=== PATIENT | male | born 1975 | race American Indian/Alaskan Native ===

== ENCOUNTER 2017-06-21 10:58 | Emergency (ER) | payer MEDICARE ==
[2017-06-21 11:47] LABS: Eosinophils % (Auto) 6.3 % (0.0-4.3)
[2017-06-21 11:49] LABS: Basophils % (Auto) 0.7 % (0.0-1.8)
[2017-06-21 11:50] LABS: Hematocrit 42.6 % (35.5-45.6); Hemoglobin 13.4 gm/dl (11.8-15.2); Red Blood Count 5.58 M/mm3 (3.65-5.03); White Blood Count 7.7 K/mm3 (4.5-11.0)
[2017-06-21 11:51] LABS: Mean Corpuscular HGB Conc 31 % (32-34); Mean Corpuscular Hemoglobin 24 pg (28-32); Mean Corpuscular Volume 76 fl (84-94); Platelet Count 273 K/mm3 (140-440); Red Cell Distribution Width 14.5 % (13.2-15.2)
[2017-06-21 11:52] LABS: INR 3.07 (0.87-1.13)
[2017-06-21 11:53] LABS: Partial Thromboplastin Time 36.4 Sec. (24.2-36.6)
[2017-06-21 11:58] LABS: Anion Gap 19 mmol/L; BUN/Creatinine Ratio 16.66; Blood Urea Nitrogen 35 mg/dL (9-20); Carbon Dioxide 27 mmol/L (22-30); Chloride 99.1 mmol/L (98-107); Glucose 87 mg/dL (75-100); Potassium 3.9 mmol/L (3.6-5.0); Sodium 141 mmol/L (137-145)
--- NOTE | 2017-06-22 04:01 | Emergency Department Report ---
ED Chest Pain HPI - General Chief Complaint: Chest Pain Stated Complaint: CHEST PAIN Time Seen by Provider: 06/22/17 03:30 Source: patient Mode of arrival: Ambulatory Limitations: No Limitations - History of Present Illness Initial Comments: 42 years old male with past medical history of high blood pressure, presented with chest pain, central ,sharp in nature ,and comes and goes, started yesterday , denied any shortness of breath, no fever,no cough. He stated that he has been pushing and lifting heavy stuff for the last 2 days, no other complaints MD Complaint: chest pain -: Last night Onset: during rest Pain Location: substernal Severity scale (0 -10): 0 Quality: sharp re: denies: nausea, vomting, diaphoresis - Related Data Home Medications Medication Instructions Recorded Confirmed Last Taken Metoprolol [Lopressor] 100 mg PO BID 06/22/17 06/22/17 Unknown Previous Rx's Medication Instructions Recorded Last Taken Type Naproxen [Naprosyn] 500 mg PO BID #14 tablet 06/22/17 Unknown Rx Allergies Allergy/AdvReac Type Severity Reaction Status Date / Time No Known Allergies Allergy Unverified 06/21/17 11:19 Heart Score - HEART Score History: Slightly suspicious EKG: Normal Age: < 45 Risk factors: 1-2 risk factors Troponin: < normal limit HEART Score: 1 - Critical Actions Critical Actions: 0-3 pts:0.9-1.7%risk of adverse cardiac event.Candidate for discharge ED Review of Systems ROS: Stated complaint: CHEST PAIN Other details as noted in HPI Comment: All other systems reviewed and negative Constitutional: denies: chills, fever ENT: denies: throat pain Respiratory: denies: cough, shortness of breath, SOB with exertion, SOB at rest Cardiovascular: chest pain. denies: palpitations, dyspnea on exertion Gastrointestinal: denies: abdominal pain, nausea, vomiting, diarrhea Skin: denies: rash, lesions Neurological: denies: headache, weakness, numbness ED Past Medical Hx - Past Medical History Hx Hypertension: Yes Hx CVA: Yes (right-sided weakness,speak impairment,confusion) Hx Psychiatric Treatment: Yes (bipolar) Additional medical history: elevated cholesterol,[place],CAD - Surgical History Additional Surgical History: stent replacement-failed attempt-on coumadin - Social History Smoking Status: Current Some Day Smoker Substance Use Type: None - Medications Home Medications: Home Medications Medication Instructions Recorded Confirmed Last Taken Type Metoprolol [Lopressor] 100 mg PO BID 06/22/17 06/22/17 Unknown History Naproxen [Naprosyn] 500 mg PO BID #14 tablet 06/22/17 Unknown Rx ED Physical Exam - General Limitations: No Limitations General appearance: alert, in no apparent distress - Head Head exam: Present: atraumatic, normocephalic - Neck Neck exam: Present: normal inspection - Respiratory Respiratory exam: Present: normal lung sounds bilaterally, chest wall tenderness. Absent: respiratory distress, wheezes, rales, rhonchi, stridor, accessory muscle use, decreased breath sounds, prolonged expiratory - Cardiovascular Cardiovascular Exam: Present: regular rate, normal rhythm, normal heart sounds - GI/Abdominal GI/Abdominal exam: Present: soft. Absent: tenderness, guarding, rebound - Extremities Exam Extremities exam: Present: normal inspection - Neurological Exam Neurological exam: Present: alert, oriented X3, CN II-XII intact ED Course Vital Signs 06/21/17 06/22/17 06/22/17 11:11 02:39 02:40 Temperature 99 F 97.7 F Pulse Rate 75 69 Respiratory 20 14 14 Rate Blood Pressure 143/103 Blood Pressure 171/112 [Left] O2 Sat by Pulse 97 96 96 Oximetry - Reevaluation(s) Reevaluation #1: 06/22/17 04:03 Patient stated that his chest pain is completely resolved. His troponin came back negative. ED Medical Decision Making - Lab Data Result diagrams: 06/21/17 11:20 06/21/17 11:20 Critical care attestation.: If time is entered above; I have spent that time in minutes in the direct care of this critically ill patient, excluding procedure time. ED Disposition Clinical Impression: Chest pain, Costochondritis, acute Disposition: DC-01 TO HOME OR SELFCARE Is pt being admited?: No Does the pt Need Aspirin: No (atypical chest pain) Condition: Stable Instructions: Chest Pain (ED), Costochondritis (ED) Referrals: PRIMARY CARE,MD [Primary Care Provider] - 3-5 Days
[2017-06-22 04:20] VITALS: BP 150/96
== END 2017-06-22 04:19 | disposition home or self-care (01) ==
LOC: ED 10:58
DX: M94.0 Chondrocostal junction syndrome [Tietze] (principal); I10 Essential (primary) hypertension; F17.210 Nicotine dependence, cigarettes, uncomplicated; Z86.73 Personal history of transient ischemic attack (TIA), and cerebral infarction without residual deficits
CPT/HCPCS: 36415; 80048; 84484; 85025; 85610; 85730; 93005; 93010; 99284

== ENCOUNTER 2017-07-15 09:45 | Emergency (ER) | payer MEDICARE ==
[2017-07-15 10:41] LABS: Basophils % (Auto) 0.7 % (0.0-1.8); Hematocrit 39.7 % (35.5-45.6); Hemoglobin 12.7 gm/dl (11.8-15.2); Mean Corpuscular HGB Conc 32 % (32-34); Mean Corpuscular Volume 76 fl (84-94); Platelet Count 254 K/mm3 (140-440); Red Cell Distribution Width 14.6 % (13.2-15.2); White Blood Count 7.2 K/mm3 (4.5-11.0)
[2017-07-15 10:42] LABS: Mean Corpuscular Hemoglobin 24 pg (28-32)
[2017-07-15 10:51] LABS: Anion Gap 16 mmol/L; Blood Urea Nitrogen 39 mg/dL (9-20); Calcium 9.3 mg/dL (8.4-10.2); Carbon Dioxide 28 mmol/L (22-30); Chloride 102.7 mmol/L (98-107); Glucose 123 mg/dL (75-100); Potassium 3.5 mmol/L (3.6-5.0); Sodium 143 mmol/L (137-145)
[2017-07-15 14:50] VITALS: BP 141/97
[2017-07-15] MEDS ORDERED: DECADRON IV ONE (16:49)
[2017-07-15] MEDS ORDERED: MOTRIN PO ONE (16:51)
[2017-07-15] MEDS ORDERED: CLEOCIN PO ONE (16:52)
[2017-07-15] MEDS ORDERED: ZITHROMAX 500 MG in NACL 0.9% 250ML 250 ML IV ONE (17:13)
--- NOTE | 2017-07-15 17:37 | Emergency Department Report ---
HPI - General Chief Complaint: Headache Time Seen by Provider: 07/15/17 16:22 - HPI HPI: The patient is a 42-year-old male presents for evaluation of headache and throat pain. The patient reports the pain for the past 2 days, burning in scratching in quality, 5/10 in severity, exacerbated with swallowing. He also reports a secondary complaint of mild aching generalized headache for the past one day, constant since onset, consistent with previous eye drainage. The patient denies trauma to the head, dyspnea, neck stiffness, dysphagia, stridor, drooling, difficulty tolerating secretions, dysphonia, hoarseness of voice, abdominal pain, paresthesias, motor deficits, or other focal neurological deficits. ED Past Medical Hx - Past Medical History Hx Hypertension: Yes Hx CVA: Yes (right-sided weakness,speak impairment,confusion) Hx Psychiatric Treatment: Yes (bipolar) Additional medical history: elevated cholesterol,[place],CAD - Surgical History Additional Surgical History: stent replacement-failed attempt-on coumadin - Social History Smoking Status: Current Every Day Smoker - Medications Home Medications: Home Medications Medication Instructions Recorded Confirmed Last Taken Type Metoprolol [Lopressor] 100 mg PO BID 06/22/17 06/22/17 Unknown History Naproxen [Naprosyn] 500 mg PO BID #14 tablet 06/22/17 Unknown Rx Clindamycin [Clindamycin CAP] 300 mg PO TID #20 cap 07/15/17 Unknown Rx Ibuprofen [Motrin] 800 mg PO Q8HR PRN #15 tablet 07/15/17 Unknown Rx ED Review of Systems ROS: Stated complaint: HEADACHE , TONGUE SWOLLEN Other details as noted in HPI Constitutional: denies: fever ENT: reports throat pain Respiratory: denies: cough, shortness of breath Cardiovascular: denies: chest pain Endocrine: denies unexplained weight loss or gain Gastrointestinal: denies: abdominal pain, nausea Genitourinary: denies: dysuria Musculoskeletal: denies: leg swelling Skin: denies: rash Neurological: reports headache Hematological/Lymphatic: denies: easy bleeding or easy bruising Psych: denies sadness or hopelessness Physical Exam - Physical Exam Vital Signs: Vital Signs 07/15/17 07/15/17 07/15/17 09:58 14:49 14:50 Temperature 97.8 F 98.8 F Pulse Rate 79 78 Respiratory 16 20 18 Rate Blood Pressure 139/101 Blood Pressure 139/101 141/97 [Left] O2 Sat by Pulse 95 95 95 Oximetry 07/15/17 17:20 Temperature Pulse Rate Respiratory 18 Rate Blood Pressure Blood Pressure [Left] O2 Sat by Pulse Oximetry Physical Exam: General: well-nourished, well-developed, no acute distress Head: Normocephalic, atraumatic Eyes: normal sclera ENT: Mucous membranes are pink and moist, mildly erythematous uvula with mild swelling, mild posterior oropharyngeal erythema present as well, no pooling of secretions in the posterior oropharynx, no stridor, no tonsillar exudates, no uvula or soft palate deviation, no bulging of the lateral oropharyngeal vitale Neck: trachea midline, neck supple, No neck stiffness, mild bilateral anterior cervical adenopathy is present Respiratory: Breath sounds equal bilaterally, no wheezing, rales, or rhonchi Cardio: S1 and S2 present, no murmurs, rubs, gallops, capillary refill is brisk Abdomen: Normoactive bowel sounds, soft abdomen, no rigidity, no guarding or rebound tenderness Musc: No pitting edema Skin: No rash Neuro: alert oriented x4, normal cognition, speech normal, PERRL, EOM intact, no facial drooping, no uvula or tongue deviation on protrusion, no deficit with rotation of neck or shoulder shrug, no obvious gross motor deficit in the upper or lower extremities with flexion or extension at the shoulder, elbow, wrist, hip, knee, or ankle bilaterally, no obvious gross sensation deficit to crude touch or 2 pt discrimination, 2+ symmetric reflexes on DTR testing, no dysmetria , dysdiadochokinesia, no coordination deficit with [id number] or heel-to- richard testing,romberg negative, patient able to to ambulate without abnormal gait Psych: Normal affect ED Course Vital Signs 07/15/17 07/15/17 07/15/17 09:58 14:49 14:50 Temperature 97.8 F 98.8 F Pulse Rate 79 78 Respiratory 16 20 18 Rate Blood Pressure 139/101 Blood Pressure 139/101 141/97 [Left] O2 Sat by Pulse 95 95 95 Oximetry 07/15/17 17:20 Temperature Pulse Rate Respiratory 18 Rate Blood Pressure Blood Pressure [Left] O2 Sat by Pulse Oximetry ED Medical Decision Making - Lab Data Result diagrams: 07/15/17 10:13 07/15/17 10:13 - Medical Decision Making The patient was seen and examined by myself. The patient is placed on a bus driver/monitor and continuous pulse ox. On initial evaluation, the patient was found to be in no distress. Evaluation orders are placed. The patient given by mouth Motrin for his pain, or Decadron, and a tablet of clindamycin. Lab results revealed normal WBC with elevated creatinine of 2.5. Medical records are reviewed and revealed that the patient has history of elevated creatinine of >2 on evaluation 1 month ago. The patient was reevaluated and reported that their symptoms were markedly improved. The patient is offered admission for further evaluation of kidney injury and he declines. The patient is stable for discharge with outpatient follow-up. The patient is given follow-up and return instructions. The patient expressed understanding and agreed with the plan. The patient is discharged in stable condition. Critical care attestation.: If time is entered above; I have spent that time in minutes in the direct care of this critically ill patient, excluding procedure time. ED Disposition Clinical Impression: Uvulitis, CKD (chronic kidney disease), stage I Acute nonintractable headache Qualifiers: Headache type: tension-type Qualified Code(s): G44.209 - Tension-type headache , unspecified, not intractable Pharyngitis, acute Qualifiers: Pharyngitis/tonsillitis etiology: unspecified etiology Qualified Code(s): J02.9 - Acute pharyngitis, unspecified Disposition: DC-01 TO HOME OR SELFCARE Is pt being admited?: No Does the pt Need Aspirin: No Condition: Stable Instructions: Sinusitis (ED), Acute Headache (ED) Prescriptions: Clindamycin [Clindamycin CAP] 300 mg PO TID #20 cap Ibuprofen [Motrin] 800 mg PO Q8HR PRN #15 tablet PRN Reason: Pain Referrals: PRIMARY CARE, [Primary Care Provider] - 3-5 Days SERAFIN GORE MD [Staff Physician] - 3-5 Days Time of Disposition: 17:33
== END 2017-07-15 17:57 | disposition home or self-care (01) ==
LOC: ED 09:45
DX: N18.1 Chronic kidney disease, stage 1 (principal); I12.9 Hypertensive chronic kidney disease with stage 1 through stage 4 chronic kidney disease, or unspecified chronic kidney disease; G44.209 Tension-type headache, unspecified, not intractable; J02.9 Acute pharyngitis, unspecified; K12.2 Cellulitis and abscess of mouth; F17.200 Nicotine dependence, unspecified, uncomplicated; I63.9 Cerebral infarction, unspecified; I25.10 Atherosclerotic heart disease of native coronary artery without angina pectoris
CPT/HCPCS: 36415; 80048; 84484; 85025; 87116; 87430; 96374; 99284; J1100

== ENCOUNTER 2017-07-22 15:34 | Emergency (ER) | payer MEDICARE ==
[2017-07-22 21:40] LABS: Basophils % (Auto) 0.6 % (0.0-1.8); Eosinophils % (Auto) 6.1 % (0.0-4.3); Hematocrit 39.6 % (35.5-45.6); Hemoglobin 12.7 gm/dl (11.8-15.2); Mean Corpuscular HGB Conc 32 % (32-34); Mean Corpuscular Volume 76 fl (84-94); Platelet Count 287 K/mm3 (140-440); Red Blood Count 5.19 M/mm3 (3.65-5.03); Red Cell Distribution Width 14.9 % (13.2-15.2); White Blood Count 9.9 K/mm3 (4.5-11.0)
[2017-07-22 21:42] LABS: Mean Corpuscular Hemoglobin 25 pg (28-32)
[2017-07-22 21:45] LABS: Albumin 4.2 g/dL (3.9-5); Albumin/Globulin Ratio 1.5 %; BUN/Creatinine Ratio 15.83; Bilirubin,Total 0.2 mg/dL (0.1-1.2); Calcium 8.9 mg/dL (8.4-10.2); Chloride 95.9 mmol/L (98-107); Potassium 3.4 mmol/L (3.6-5.0)
[2017-07-22 21:48] LABS: INR 3.64 (0.87-1.13)
[2017-07-22] MEDS ORDERED: APRESOLINE IV ONE (23:30)
--- NOTE | 2017-07-22 23:46 | Emergency Department Report ---
HPI - General Chief Complaint: Medical Clearance Time Seen by Provider: 07/22/17 23:21 - HPI HPI: This is a 42 year-old male presents to the emergency department from [place] with the complaint of some abnormal bruising that showed up on his left arm. He denies any trauma or injections to that area. He has a history of non-Hodgkin's lymphoma. He has a history of some type of coronary artery disease that was supposed to have stent placement but they were unable to do so and therefore he was placed on warfarin, which he has been taking compliantly. He denies any chest pain, short of breath, nausea, vomiting or fever. He has a primary care doctor. He has a history of a CVA with some residual right-sided weakness and speech impairment. He has a past psychiatric history of bipolar disorder. He also presents with elevated blood pressure and says he has not taken his nighttime metoprolol. ED Past Medical Hx - Past Medical History Previous Medical History?: Yes Hx Hypertension: Yes Hx CVA: Yes (right-sided weakness,speak impairment,confusion) Hx Psychiatric Treatment: Yes (bipolar) Additional medical history: elevated cholesterol,[place],CAD - Surgical History Past Surgical History?: Yes Additional Surgical History: stent replacement-failed attempt-on coumadin - Social History Smoking Status: Current Every Day Smoker Substance Use Type: Prescribed - Medications Home Medications: Home Medications Medication Instructions Recorded Confirmed Last Taken Type Metoprolol [Lopressor] 100 mg PO BID 06/22/17 06/22/17 Unknown History Naproxen [Naprosyn] 500 mg PO BID #14 tablet 06/22/17 Unknown Rx Clindamycin [Clindamycin CAP] 300 mg PO TID #20 cap 07/15/17 Unknown Rx Ibuprofen [Motrin] 800 mg PO Q8HR PRN #15 tablet 07/15/17 Unknown Rx ED Review of Systems ROS: Stated complaint: ALLERGIC REACTION TO MEDICATION Other details as noted in HPI Comment: All other systems reviewed and negative Constitutional: denies: chills, fever Eyes: denies: eye pain, eye discharge, vision change ENT: denies: ear pain, throat pain Respiratory: denies: cough, shortness of breath, wheezing Cardiovascular: denies: chest pain, palpitations Gastrointestinal: denies: abdominal pain, nausea, diarrhea Genitourinary: denies: urgency, dysuria Musculoskeletal: denies: back pain, joint swelling, arthralgia Skin: denies: rash, lesions Neurological: denies: headache, weakness, paresthesias Hematological/Lymphatic: easy bruising. denies: easy bleeding Physical Exam - Physical Exam Vital Signs: Vital Signs 07/22/17 07/22/17 07/22/17 16:38 21:04 23:10 Temperature 98 F 98 F 98.1 F Pulse Rate 68 74 73 Respiratory 20 16 16 Rate Blood Pressure 155/98 Blood Pressure 183/123 183/123 [Left] O2 Sat by Pulse 99 97 99 Oximetry 07/22/17 23:12 Temperature Pulse Rate 72 Respiratory Rate Blood Pressure Blood Pressure 194/125 [Left] O2 Sat by Pulse Oximetry Physical Exam: GENERAL: The patient is well-developed well-nourished. HENT: Normocephalic. Atraumatic. Patient has moist mucous membranes. EYES: Extraocular motions are intact. Pupils equal reactive to light bilaterally. NECK: Supple. Trachea is midline. CHEST/LUNGS: Clear to auscultation. There is no respiratory distress noted. HEART/CARDIOVASCULAR: Regular. There is no tachycardia. There is no gallop rub or murmur. ABDOMEN: Abdomen is soft, nontender. Patient has normal bowel sounds. There is no abdominal distention. SKIN: Skin is warm and dry. There is a large area of ecchymosis to the left upper arm. NEURO: The patient is awake, alert, and oriented. The patient is cooperative. The patient has no acute focal neurologic deficits. MUSCULOSKELETAL: There is no tenderness or deformity. There is no limitation range of motion. There is no evidence of acute injury. ED Course Vital Signs 07/22/17 07/22/17 07/22/17 16:38 21:04 23:10 Temperature 98 F 98 F 98.1 F Pulse Rate 68 74 73 Respiratory 20 16 16 Rate Blood Pressure 155/98 Blood Pressure 183/123 183/123 [Left] O2 Sat by Pulse 99 97 99 Oximetry 07/22/17 23:12 Temperature Pulse Rate 72 Respiratory Rate Blood Pressure Blood Pressure 194/125 [Left] O2 Sat by Pulse Oximetry ED Medical Decision Making - Lab Data Result diagrams: 07/22/17 21:08 07/22/17 21:08 - Medical Decision Making 42-year-old male presents to the emergency department from [place] for an evaluation as he woke up with a large bruise to the left arm and is on Coumadin. His INR is slightly supratherapeutic at 3.6. There is no areas of spontaneous bleeding and the rest of his labs are unremarkable. He will hold his next Coumadin or warfarin pill so he can get back down towards a therapeutic level but then will continue again on Thursday. He also presented with elevated blood pressure and was given a dose of hydralazine. His blood pressure was still elevated but was much more reasonable and the patient says that he still is due to take his metoprolol 100 mg when he returns back to [place]. Since he is asymptomatic, he will be discharged back to [place] to take his medication. We discussed dietary lifestyle changes he can make to also help with his blood pressure which includes smoking cessation. He'll return to the ER with any worsening of symptoms or any acute distress. - Differential Diagnosis supratherapeutic INR, hypertensive urgency, tobacco abuse Critical Care Time: No Critical care attestation.: If time is entered above; I have spent that time in minutes in the direct care of this critically ill patient, excluding procedure time. ED Disposition Clinical Impression: Supratherapeutic INR Hypertension Qualifiers: Hypertension type: essential hypertension Qualified Code(s): I10 - Essential ( primary) hypertension Disposition: - TO HOME OR SELFCARE Is pt being admited?: No Condition: Stable Instructions: Hypertension (ED), Elevated INR (ED) Additional Instructions: Make sure to go home and take your blood pressure medication. Try to stay away from foods that are high in salt and caffeinated products to help with your blood pressure. Quit smoking. Keep a blood pressure log. Your INR today was about 3.6 which is elevated. I would skip your dose of warfarin/Coumadin for tomorrow and then continue as normal on Thursday. Make sure you get to a primary care physician for follow-up regarding her blood pressure and for another INR check. Return to the emergency department with any heavy bleeding, chest pain or shortness of breath, headache, or any acute distress. Referrals: HELGA ARDON DO [Primary Care Provider] - 3-5 Days Time of Disposition: 01:00
[2017-07-23 01:23] VITALS: BP 166/112
== END 2017-07-23 01:15 | disposition home or self-care (01) ==
LOC: ED 15:34
DX: I10 Essential (primary) hypertension (principal); R79.1 Abnormal coagulation profile; Z86.73 Personal history of transient ischemic attack (TIA), and cerebral infarction without residual deficits; F31.9 Bipolar disorder, unspecified; F17.200 Nicotine dependence, unspecified, uncomplicated
CPT/HCPCS: 36415; 80053; 85025; 85610; 96374; 99283; J0360

== ENCOUNTER 2017-11-05 21:54 | Emergency (ER) | payer MEDICARE ==
--- NOTE | 2017-11-06 01:04 | Cat Scan Report ---
FINAL REPORT EXAM: CT HEAD/BRAIN WO CON HISTORY: trauma,on coumadin COMPARISON: CT of the head from August 2017. TECHNIQUE: Contiguous axial images were obtained. FINDINGS: Remote large left MCA distribution infarct involving the left frontal, parietal and temporal lobes and left subinsular region. Mild ex vacuo dilatation of the left lateral ventricle. At the medial margin of the left frontal lobe, there are 2 hyperdense foci measuring 5 x 5 and 7 x 6 millimeters each. These are new from prior study concerning for small hemorrhagic contusive injuries given the patient's history. No extra-axial hemorrhage. Basal cisterns are patent. Calvarium is intact. Visualized paranasal sinuses and mastoid air cells are clear. Visualized orbits are grossly unremarkable. IMPRESSION: Two small hemorrhagic contusive injuries involving the medial left frontal lobe. Each are subcentimeter in size. No extra-axial hemorrhage. Calvarium is intact. Stable remote large left MCA distribution infarct.
[2017-11-06] MEDS ORDERED: NORMODYNE IV ONE ×2 (02:28→03:57)
[2017-11-06 02:38] LABS: Hematocrit 38.9 % (35.5-45.6); Hemoglobin 12.3 gm/dl (11.8-15.2); Mean Corpuscular HGB Conc 32 % (32-34); Mean Corpuscular Volume 77 fl (84-94); Platelet Count 278 K/mm3 (140-440); Red Blood Count 5.08 M/mm3 (3.65-5.03); Red Cell Distribution Width 15.7 % (13.2-15.2)
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
[2017-11-06 02:42] LABS: Mean Corpuscular Hemoglobin 24 pg (28-32)
[2017-11-06 02:50] LABS: INR 0.95 (0.87-1.13)
[2017-11-06 02:51] LABS: Partial Thromboplastin Time 26.2 Sec. (24.2-36.6)
[2017-11-06 02:55] LABS: Calcium 8.8 mg/dL (8.4-10.2)
[2017-11-06] MEDS ORDERED: MORPHINE IV ONE (03:57)
[2017-11-06] MEDS ORDERED: ZOFRAN IV ONE (03:58)
[2017-11-06 04:54] LABS: Amphetamine Screen,Urine PRESUMPTIVE NEGATIVE; Benzodiazepines Screen,Urine PRESUMPTIVE NEGATIVE; Cocaine Screen,Urine PRESUMPTIVE NEGATIVE; Methadone Screen,Urine PRESUMPTIVE NEGATIVE; Opiate Screen,Urine PRESUMPTIVE NEGATIVE
[2017-11-06 05:22] LABS: Cannabinoid Screen,Urine PRESUMPTIVE POSITIVE
[2017-11-06 06:16] VITALS: BP 179/114
== END 2017-11-06 06:20 | disposition other institution (70) ==
LOC: ED 21:54
DX: I16.1 Hypertensive emergency (principal); I10 Essential (primary) hypertension; S06.339A Contusion and laceration of cerebrum, unspecified, with loss of consciousness of unspecified duration, initial encounter; F31.9 Bipolar disorder, unspecified; E78.00 Pure hypercholesterolemia, unspecified; I25.2 Old myocardial infarction; I25.10 Atherosclerotic heart disease of native coronary artery without angina pectoris; Z86.73 Personal history of transient ischemic attack (TIA), and cerebral infarction without residual deficits; Z95.818 Presence of other cardiac implants and grafts; Z79.899 Other long term (current) drug therapy; Z79.01 Long term (current) use of anticoagulants; Y04.0XXA Assault by unarmed brawl or fight, initial encounter; Y93.89 Activity, other specified; Y99.8 Other external cause status; Y92.89 Other specified places as the place of occurrence of the external cause
CPT/HCPCS: 36415; 70450; 80048; 80307; 84484; 85027; 85610; 85730; 93005; 93010; 96374; 96375; 96376; 99285; G0480; J2270; J2405; 80320

== ENCOUNTER 2018-05-19 17:31 | Emergency (ER) | payer MEDICARE ==
[2018-05-19 19:43] LABS: Basophils # (Auto) 0.1 K/mm3 (0.0-0.1); Basophils % (Auto) 1.5 % (0.0-1.8); Eosinophils # (Auto) 0.5 K/mm3 (0.0-0.4); Eosinophils % (Auto) 4.9 % (0.0-4.3); Hematocrit 37.2 % (35.5-45.6); Hemoglobin 11.5 gm/dl (11.8-15.2); Lymphocytes # (Auto) 1.8 K/mm3 (1.2-5.4); Lymphocytes % (Auto) 18.7 % (13.4-35.0); Mean Corpuscular HGB Conc 31 % (32-34); Mean Corpuscular Volume 77 fl (84-94); Monocytes # (Auto) 0.8 K/mm3 (0.0-0.8); Monocytes % (Auto) 8.5 % (0.0-7.3); Platelet Count 430 K/mm3 (140-440); Red Blood Count 4.82 M/mm3 (3.65-5.03); Red Cell Distribution Width 14.7 % (13.2-15.2)
[2018-05-19 19:47] LABS: Mean Corpuscular Hemoglobin 24 pg (28-32)
[2018-05-19 20:07] LABS: Calcium 8.9 mg/dL (8.4-10.2)
--- NOTE | 2018-05-19 20:31 | Emergency Department Report ---
ED General Adult HPI - General Chief complaint: Dyspnea/Respdistress Stated complaint: SOB Time Seen by Provider: 05/19/18 20:19 Source: patient Mode of arrival: Ambulatory Limitations: Other (the patient is a poor historian.) - History of Present Illness Initial comments: This is a 43-year-old male who is unknown to this provider previously. History is primarily obtained by speaking to his recent cardiac surgeon, Dr. Eliu Link As per the cardiothoracic surgeon, patient was recently admitted to the [facility] from May 05 to May 14 for chronic type a aortic dissection, pulmonary emboli, and pulmonary infarcts. He reports that the dissection is chronic, patient had an IVC filter placed, and was taken off Coumadin. The patient presented to the ER with a complaint of chest pain and shortness of breath. The patient indicates the chest pain as central, but cannot describe the quality of nature of the pain, exacerbating or relieving factors or radiation. Patient is quite disorganized, and is a very poor historian. He also has a history of stroke, residual right-sided weakness, and chronic renal insufficiency. He is not accompanied currently by any caregiver or any adult. In the emergency room, the patient was very confused, and was found to have an elevated troponin, as well as chronic renal insufficiency. A noncontrast CT scan of the brain demonstrated no obvious bleeding, but demonstrated a chronic left-sided infarct with encephalomalacia, and an x-ray of the chest suggested infiltrates, and a noncontrast CT scan of the chest suggested known pulmonary infarcts. This hospital does not have cardiothoracic surgery available for consultation. Given that the patient has a type A dissection, spiking troponin , he will require consultation by cardiothoracic surgery. The case was discussed with consult in cardiothoracic surgeon, Dr. Dr. Eliu Link, he accepted the patient as a transfer for continuity of care. There is no family currently available who can give informed consent for transfer, however given his chronic medical issues, complex presentation, elevated troponin, known type A dissection, and given that this hospital cannot provide definitive care for this patient, it is my medical opinion that he will be best served to be transferred back to the aforementioned hospital, [place]. Therefore, I have administrated we consented the patient for transfer. As per my discussion with consult in cardiothoracic surgery, pulmonary infiltrates are likely pulmonary infarcts, and does not require antibiotic therapy. -: unknown Location: chest Radiation: other (as per history of present illness) Quality: other (as per history of present illness) Consistency: other (as per history of present illness) Improves with: other (as per history of present illness) Associated Symptoms: chest pain, shortness of breath, other (as per history of present illness.) - Related Data Home Medications Medication Instructions Recorded Confirmed Last Taken Aspirin [Aspirin BABY CHEW TAB] 162 mg PO QDAY 09/15/17 09/15/17 Unknown Citalopram Hydrobromide 20 mg PO DAILY 09/15/17 09/15/17 09/14/17 [Citalopram HBr] Iron Polysaccharide Complex 150 mg PO DAILY 09/15/17 09/15/17 Unknown [Ferrex 150] Trazodone HCl 100 mg PO QHS 09/15/17 09/15/17 Unknown Warfarin [Coumadin] 7.5 mg PO QDAY 09/15/17 09/15/17 09/14/17 Previous Rx's Medication Instructions Recorded Last Taken Type AtorvaSTATin [Lipitor] 20 mg PO QHS #30 tablet 09/16/17 Unknown Rx Losartan Potassium [Cozaar] 50 mg PO DAILY #30 tablet 09/16/17 Unknown Rx Metoprolol [Lopressor TAB] 100 mg PO BID #60 tablet 09/16/17 Unknown Rx NIFEdipine [Nifedipine ER] 90 mg PO DAILY #30 tablet.er 09/16/17 Unknown Rx Allergies Allergy/AdvReac Type Severity Reaction Status Date / Time No Known Allergies Allergy Unverified 06/21/17 11:19 ED Review of Systems ROS: Stated complaint: SOB Other details as noted in HPI Comment: Unobtainable due to pts medical conditions ED Past Medical Hx - Past Medical History Previous Medical History?: Yes Hx Hypertension: Yes Hx CVA: Yes (right-sided weakness,speak impairment,confusion) Hx Congestive Heart Failure: No Hx Diabetes: No Hx Psychiatric Treatment: Yes (bipolar) Hx Asthma: No Hx COPD: No Additional medical history: elevated cholesterol,LA,CAD, aortic dissection, PE - Surgical History Past Surgical History?: Yes Additional Surgical History: stent replacement-failed attempt-on coumadin - Social History Smoking Status: Unknown if ever smoked Substance Use Type: None - Medications Home Medications: Home Medications Medication Instructions Recorded Confirmed Last Taken Type Aspirin [Aspirin BABY CHEW TAB] 162 mg PO QDAY 09/15/17 09/15/17 Unknown History Citalopram Hydrobromide 20 mg PO DAILY 09/15/17 09/15/17 09/14/17 History [Citalopram HBr] Iron Polysaccharide Complex 150 mg PO DAILY 09/15/17 09/15/17 Unknown History [Ferrex 150] Trazodone HCl 100 mg PO QHS 09/15/17 09/15/17 Unknown History Warfarin [Coumadin] 7.5 mg PO QDAY 09/15/17 09/15/17 09/14/17 History AtorvaSTATin [Lipitor] 20 mg PO QHS #30 tablet 09/16/17 Unknown Rx Losartan Potassium [Cozaar] 50 mg PO DAILY #30 tablet 09/16/17 Unknown Rx Metoprolol [Lopressor TAB] 100 mg PO BID #60 tablet 09/16/17 Unknown Rx NIFEdipine [Nifedipine ER] 90 mg PO DAILY #30 tablet.er 09/16/17 Unknown Rx ED Physical Exam - General Limitations: Other (patient is a poor historian and is disorganized) General appearance: alert, in no apparent distress - Head Head exam: Present: atraumatic, normocephalic - Eye Eye exam: Present: normal appearance, EOMI. Absent: nystagmus - ENT ENT exam: Present: normal exam, normal orophraynx, mucous membranes moist, normal external ear exam - Neck Neck exam: Present: normal inspection, full ROM - Respiratory Respiratory exam: Present: normal lung sounds bilaterally. Absent: respiratory distress - Cardiovascular Cardiovascular Exam: Present: regular rate, normal rhythm, normal heart sounds. Absent: bradycardia, tachycardia, irregular rhythm, systolic murmur, diastolic murmur, rubs, gallop - GI/Abdominal GI/Abdominal exam: Present: soft, normal bowel sounds. Absent: distended, tenderness, guarding, rebound, rigid, pulsatile mass - Rectal Rectal exam: Present: deferred - Extremities Exam Extremities exam: Present: normal inspection, full ROM, normal capillary refill , other (2+ pulses noted in the bilateral upper, lower extremities. Compartments soft. No long bony tenderness. The pelvis is stable.). Absent: pedal edema, joint swelling, calf tenderness - Back Exam Back exam: Present: normal inspection, full ROM. Absent: tenderness, CVA tenderness (R), paraspinal tenderness, vertebral tenderness - Neurological Exam Neurological exam: Present: alert, other (Extraocular movements intact. Tongue midline. No facial droop. Facial sensation intact to light touch in the V1, V2 , V3 distribution bilaterally. 5 and 5 strength in 4 extremities.. Sensation is intact to light touch in 4 extremities.). Absent: motor sensory deficit - Psychiatric Psychiatric exam: Present: flat affect - Skin Skin exam: Present: warm, dry, intact, normal color. Absent: rash ED Course Vital Signs 05/19/18 05/19/18 05/19/18 17:31 19:40 19:46 Temperature 98.8 F Pulse Rate 91 H 85 86 Respiratory 16 23 30 H Rate Blood Pressure 142/87 129/79 O2 Sat by Pulse 95 92 Oximetry 05/19/18 05/19/18 05/19/18 20:00 20:16 20:30 Temperature Pulse Rate 84 88 87 Respiratory 24 19 16 Rate Blood Pressure 129/79 131/74 131/74 O2 Sat by Pulse 91 87 95 Oximetry 05/19/18 05/19/18 22:18 22:30 Temperature Pulse Rate 86 86 Respiratory 21 24 Rate Blood Pressure 131/79 131/79 O2 Sat by Pulse 93 93 Oximetry ED Medical Decision Making - Lab Data Result diagrams: 05/19/18 19:15 05/19/18 19:15 Vital Signs 05/19/18 05/19/18 05/19/18 17:31 19:40 19:46 Temperature 98.8 F Pulse Rate 91 H 85 86 Respiratory 16 23 30 H Rate Blood Pressure 142/87 129/79 O2 Sat by Pulse 95 92 Oximetry 05/19/18 05/19/18 05/19/18 20:00 20:16 20:30 Temperature Pulse Rate 84 88 87 Respiratory 24 19 16 Rate Blood Pressure 129/79 131/74 131/74 O2 Sat by Pulse 91 87 95 Oximetry Lab Results 05/19/18 05/19/18 05/19/18 Range/Units 19:15 19:15 20:28 WBC 9.8 (4.5-11.0) K/mm3 RBC 4.82 (3.65-5.03) M/mm3 Hgb 11.5 L (11.8-15.2) gm/dl Hct 37.2 (35.5-45.6) % MCV 77 L (84-94) fl MCH 24 L (28-32) pg MCHC 31 L (32-34) % RDW 14.7 (13.2-15.2) % Plt Count 430 (140-440) K/mm3 Lymph % (Auto) 18.7 (13.4-35.0) % Brooks % (Auto) 8.5 H (0.0-7.3) % Eos % (Auto) 4.9 H (0.0-4.3) % Baso % (Auto) 1.5 (0.0-1.8) % Lymph # 1.8 (1.2-5.4) K/mm3 Brooks # 0.8 (0.0-0.8) K/mm3 Eos # 0.5 H (0.0-0.4) K/mm3 Baso # 0.1 (0.0-0.1) K/mm3 Seg Neutrophils % 66.4 (40.0-70.0) % Seg Neutrophils # 6.5 (1.8-7.7) K/mm3 PT (12.2-14.9) Sec. INR (0.87-1.13) APTT (24.2-36.6) Sec. Sodium 142 (137-145) mmol/L Potassium 4.0 (3.6-5.0) mmol/L Chloride 103.5 (98-107) mmol/L Carbon Dioxide 25 (22-30) mmol/L Anion Gap 18 mmol/L BUN 34 H (9-20) mg/dL Creatinine 2.8 H (0.8-1.5) mg/dL Estimated GFR 30 ml/min BUN/Creatinine Ratio 12 % Glucose 131 H (75-100) mg/dL Calcium 8.9 (8.4-10.2) mg/dL Magnesium (1.7-2.3) mg/dL Total Bilirubin (0.1-1.2) mg/dL Direct Bilirubin (0-0.2) mg/dL Indirect Bilirubin mg/dL AST (5-40) units/L ALT (7-56) units/L Alkaline Phosphatase (35-129) units/L Troponin T 0.083 H 0.117 H* D (0.00-0.029) ng/mL Total Protein (6.3-8.2) g/dL Albumin (3.9-5) g/dL Albumin/Globulin Ratio % Triglycerides 72 (2-149) mg/dL Cholesterol 109 (50-199) mg/dL LDL Cholesterol Direct 57 (50-130) mg/dL HDL Cholesterol 41 (40-59) mg/dL Cholesterol/HDL Ratio 2.65 % Salicylates (2.8-20.0) mg/dL Acetaminophen (10.0-30.0) ug/mL Plasma/Serum Alcohol (0-0.07) % 05/19/18 05/19/18 05/19/18 Range/Units 20:28 20:28 20:28 WBC (4.5-11.0) K/mm3 RBC (3.65-5.03) M/mm3 Hgb (11.8-15.2) gm/dl Hct (35.5-45.6) % MCV (84-94) fl MCH (28-32) pg MCHC (32-34) % RDW (13.2-15.2) % Plt Count (140-440) K/mm3 Lymph % (Auto) (13.4-35.0) % Brooks % (Auto) (0.0-7.3) % Eos % (Auto) (0.0-4.3) % Baso % (Auto) (0.0-1.8) % Lymph # (1.2-5.4) K/mm3 Brooks # (0.0-0.8) K/mm3 Eos # (0.0-0.4) K/mm3 Baso # (0.0-0.1) K/mm3 Seg Neutrophils % (40.0-70.0) % Seg Neutrophils # (1.8-7.7) K/mm3 PT 15.0 H (12.2-14.9) Sec. INR 1.12 (0.87-1.13) APTT 24.2 (24.2-36.6) Sec. Sodium (137-145) mmol/L Potassium (3.6-5.0) mmol/L Chloride (98-107) mmol/L Carbon Dioxide (22-30) mmol/L Anion Gap mmol/L BUN (9-20) mg/dL Creatinine (0.8-1.5) mg/dL Estimated GFR ml/min BUN/Creatinine Ratio % Glucose (75-100) mg/dL Calcium (8.4-10.2) mg/dL Magnesium 2.00 (1.7-2.3) mg/dL Total Bilirubin 0.30 (0.1-1.2) mg/dL Direct Bilirubin < 0.2 (0-0.2) mg/dL Indirect Bilirubin 0.1 mg/dL AST 29 (5-40) units/L ALT 46 (7-56) units/L Alkaline Phosphatase 139 H (35-129) units/L Troponin T (0.00-0.029) ng/mL Total Protein 6.2 L (6.3-8.2) g/dL Albumin 3.0 L (3.9-5) g/dL Albumin/Globulin Ratio 0.9 % Triglycerides (2-149) mg/dL Cholesterol (50-199) mg/dL LDL Cholesterol Direct (50-130) mg/dL HDL Cholesterol (40-59) mg/dL Cholesterol/HDL Ratio % Salicylates < 0.3 L (2.8-20.0) mg/dL Acetaminophen (10.0-30.0) ug/mL Plasma/Serum Alcohol (0-0.07) % 05/19/18 05/19/18 Range/Units 20:28 20:28 WBC (4.5-11.0) K/mm3 RBC (3.65-5.03) M/mm3 Hgb (11.8-15.2) gm/dl Hct (35.5-45.6) % MCV (84-94) fl MCH (28-32) pg MCHC (32-34) % RDW (13.2-15.2) % Plt Count (140-440) K/mm3 Lymph % (Auto) (13.4-35.0) % Brooks % (Auto) (0.0-7.3) % Eos % (Auto) (0.0-4.3) % Baso % (Auto) (0.0-1.8) % Lymph # (1.2-5.4) K/mm3 Brooks # (0.0-0.8) K/mm3 Eos # (0.0-0.4) K/mm3 Baso # (0.0-0.1) K/mm3 Seg Neutrophils % (40.0-70.0) % Seg Neutrophils # (1.8-7.7) K/mm3 PT (12.2-14.9) Sec. INR (0.87-1.13) APTT (24.2-36.6) Sec. Sodium (137-145) mmol/L Potassium (3.6-5.0) mmol/L Chloride (98-107) mmol/L Carbon Dioxide (22-30) mmol/L Anion Gap mmol/L BUN (9-20) mg/dL Creatinine (0.8-1.5) mg/dL Estimated GFR ml/min BUN/Creatinine Ratio % Glucose (75-100) mg/dL Calcium (8.4-10.2) mg/dL Magnesium (1.7-2.3) mg/dL Total Bilirubin (0.1-1.2) mg/dL Direct Bilirubin (0-0.2) mg/dL Indirect Bilirubin mg/dL AST (5-40) units/L ALT (7-56) units/L Alkaline Phosphatase (35-129) units/L Troponin T (0.00-0.029) ng/mL Total Protein (6.3-8.2) g/dL Albumin (3.9-5) g/dL Albumin/Globulin Ratio % Triglycerides (2-149) mg/dL Cholesterol (50-199) mg/dL LDL Cholesterol Direct (50-130) mg/dL HDL Cholesterol (40-59) mg/dL Cholesterol/HDL Ratio % Salicylates (2.8-20.0) mg/dL Acetaminophen < 5.0 L (10.0-30.0) ug/mL Plasma/Serum Alcohol < 0.01 (0-0.07) % - EKG Data -: EKG Interpreted by Me - EKG Data 05/19/18 22:21 Normal sinus, premature ventricular contractions, QTC prolonged, motion artifact , normal axis, not STEMI. - Radiology Data Radiology results: report reviewed, image reviewed interpreted by me: X-ray of the chest shows upper lobe and lower lobe infiltrates Noncontrast CT scan of the brain demonstrates chronic left-sided infarcts. No acute findings. Print Report Referring Physician: ELENA OWENS Patient Name: ELENA LEE Date of : 1975 Sex: Male Report Date: 2018-05-19 Report Status: [place] [id number] Cat Scan Report Signed Patient: ELENA LEE MR#: [id number] : 1975 Acct:[id number] Age/Sex: 43 / M ADM Date: 05/19/18 Loc: ED Attending Dr: Ordering Physician: ELENA OWENS MD Date of Service: 05/19/18 Procedure(s): CT chest wo con Accession Number(s): [id number] cc: ELENA OWENS MD FINAL REPORT EXAM: CT CHEST WO CON HISTORY: cp dyspnea TECHNIQUE: Spiral CT scanning of the chest. No IV contrast administered. Multiplanar reformations. PRIORS: None. FINDINGS: Chest: Examination limited due to lack of IV contrast administration. Lungs show mild, bullous emphysematous changes, with upper lobe predominance. Patchy and partially confluent opacities scattered in the bilateral upper and right middle lobes. More dense and partially mass-like consolidations in bilateral lower lobes, with some air bronchograms. Minimal bilateral pleural effusions. No apparent pneumothorax. Mild cardiomegaly. Fusiform aneurysmal dilatation of ascending thoracic aorta and aortic arch measuring approximately 5.7 cm and 4 cm in maximal cross-sectional diameter, respectively, and tapering distally. No apparent pseudoaneurysm or pneumomediastinum. No significant lymph node enlargement or axillary adenopathy. Surgical clips noted in right axillary region. Subcentimeter hypodensity in the right hepatic lobe may represent cyst, but is too small to adequately characterize. Ovoid hypodensity in the left kidney measures approximately 2.5 cm. Lobular appearance of spleen may be developmental or secondary to splenosis. IMPRESSION: 1. Patchy opacities or infiltrates in bilateral upper and right middle lobes and more dense consolidations in bilateral lower lobes, which may represent acute infectious or inflammatory process versus nonspecific postinflammatory change or pneumonitis of uncertain etiology or chronicity. Please note neoplastic or metastatic disease cannot be completely excluded. Clinical correlation and followup to resolution advised. 2. Cardiomegaly and fusiform aneurysmal dilatation of ascending thoracic aorta and aortic arch, as reported. 3. Left renal hypodensity possibly representing cyst, but nonspecific. Correlation with renal ultrasound may be confirmatory, as clinically indicated. Transcribed By: [facility] Dictated By: BHAVESH ALBA MD Electronically Authenticated By: BHAVESH ALBA MD Signed Date/Time: 05/19/18 2228 - Medical Decision Making Differential diagnosis, including but not limited to: Pulmonary embolus, acute coronary syndrome, aortic dissection, pulmonary infarct Assessment and plan: 43-year-old male with elevated troponin, known pulmonary embolus, known aortic dissection, poor historian, disorganized, not homicidal or suicidal, does not have decision-making capacity in my opinion, requires emergent an administrative transfer to facility that can provide definitive care. No family or guardian is currently available for informed consent. Critical care attestation.: If time is entered above; I have spent that time in minutes in the direct care of this critically ill patient, excluding procedure time. ED Disposition Clinical Impression: Chest pain, History of aortic dissection, CKD (chronic kidney disease) [facility] Is pt being admited?: No Does the pt Need Aspirin: No Condition: Good Instructions: Chest Pain (ED) Referrals: PRIMARY CARE, [Primary Care Provider] - 3-5 Days
[2018-05-19 20:41] LABS: Chol/HDL Ratio 2.65 %
[2018-05-19 20:58] LABS: INR 1.12 (0.87-1.13); Partial Thromboplastin Time 24.2 Sec. (24.2-36.6)
[2018-05-19 21:04] LABS: Alanine Aminotransferase 46 units/L (7-56)
[2018-05-19 21:15] LABS: Bilirubin,Direct < 0.2 mg/dL (0-0.2)
--- NOTE | 2018-05-19 21:57 | Cat Scan Report ---
FINAL REPORT EXAM: CT HEAD/BRAIN WO CON HISTORY: ams on coumadin TECHNIQUE: Noncontrast CT axial images of the brain. PRIORS: 05 November 2017. FINDINGS: No parenchymal mass, mass effect, hemorrhage, midline shift or hydrocephalus. No evidence of acute cortical infarct. No abnormal, extra-axial fluid or air collection. Diffuse, geographic foci of encephalomalacia again noted in the left frontal, temporal and parietal regions, with ex vacuo dilatation of left lateral ventricle probably related in left MCA territory infarct about the same. Much smaller focus of encephalomalacia in left cerebellum may also represent remote ischemic change, stable. Osseous calvarium grossly intact. IMPRESSION: 1. No acute intracranial findings.. 2. Chronic ischemic changes suspected.
--- NOTE | 2018-05-19 22:33 | Cat Scan Report ---
FINAL REPORT EXAM: CT CHEST WO CON HISTORY: cp dyspnea TECHNIQUE: Spiral CT scanning of the chest. No IV contrast administered. Multiplanar reformations. PRIORS: None. FINDINGS: Chest: Examination limited due to lack of IV contrast administration. Lungs show mild, bullous emphysematous changes, with upper lobe predominance. Patchy and partially confluent opacities scattered in the bilateral upper and right middle lobes. More dense and partially mass-like consolidations in bilateral lower lobes, with some air bronchograms. Minimal bilateral pleural effusions. No apparent pneumothorax. Mild cardiomegaly. Fusiform aneurysmal dilatation of ascending thoracic aorta and aortic arch measuring approximately 5.7 cm and 4 cm in maximal cross-sectional diameter, respectively, and tapering distally. No apparent pseudoaneurysm or pneumomediastinum. No significant lymph node enlargement or axillary adenopathy. Surgical clips noted in right axillary region. Subcentimeter hypodensity in the right hepatic lobe may represent cyst, but is too small to adequately characterize. Ovoid hypodensity in the left kidney measures approximately 2.5 cm. Lobular appearance of spleen may be developmental or secondary to splenosis. IMPRESSION: 1. Patchy opacities or infiltrates in bilateral upper and right middle lobes and more dense consolidations in bilateral lower lobes, which may represent acute infectious or inflammatory process versus nonspecific postinflammatory change or pneumonitis of uncertain etiology or chronicity. Please note neoplastic or metastatic disease cannot be completely excluded. Clinical correlation and followup to resolution advised. 2. Cardiomegaly and fusiform aneurysmal dilatation of ascending thoracic aorta and aortic arch, as reported. 3. Left renal hypodensity possibly representing cyst, but nonspecific. Correlation with renal ultrasound may be confirmatory, as clinically indicated.
[2018-05-19 22:37] VITALS: BP 131/79
--- NOTE | 2018-05-19 22:39 | XRay Report ---
FINAL REPORT EXAM: XR CHEST 1V AP HISTORY: cp dyspnea TECHNIQUE: Frontal and lateral chest x-ray. PRIORS: 15 September 2017. FINDINGS: Mild cardiomegaly stable. Lungs show increased and partially confluent, interstitial and airspace opacities centrally, more focal and most pronounced projected over the left mid lateral and right lower lungs, all new from comparison. No significant pleural effusions or apparent pneumothorax. Bony thorax without acute abnormality. Multiple surgical clips again project over the right axillary region. IMPRESSION: 1. Patchy opacities or infiltrates and consolidations scattered bilaterally, which may represent pulmonary edema versus acute inflammatory process. Clinical correlation and radiographic followup advised to document resolution.
== END 2018-05-19 23:03 | disposition short-term general hospital (02) ==
LOC: ED 17:31
DX: R07.89 Other chest pain (principal); R06.02 Shortness of breath; I12.9 Hypertensive chronic kidney disease with stage 1 through stage 4 chronic kidney disease, or unspecified chronic kidney disease; N18.9 Chronic kidney disease, unspecified; R51 Headache; E78.00 Pure hypercholesterolemia, unspecified; F31.9 Bipolar disorder, unspecified; Z98.890 Other specified postprocedural states; Z79.899 Other long term (current) drug therapy
CPT/HCPCS: 36415; 70450; 71045; 71250; 80048; 80061; 80074; 83735; 84484; 85025; 85610; 85730; 93005; 93010; 99285; G0480; 80320